=== PATIENT | female | born 1985 | race Caucasian/White ===

== ENCOUNTER 2017-01-30 16:22 | Emergency (ER) | payer BC, OTHER ==
[2017-01-30] MEDS ORDERED: SODIUM CHLORIDE 0.9% 1,000 ML IV STA (17:33)
[2017-01-30] MEDS ORDERED: ACETAMINOPHEN TAB 500 MG TAB PO STA (17:34)
--- NOTE | 2017-01-30 17:49 | ED ---
Abdominal Pain HPI - General Chief Complaint: Abdominal Pain Stated Complaint: abd pain-19 wks Time Seen by Provider: 01/30/17 17:11 Source: patient, RN notes reviewed, old records reviewed Mode of arrival: ambulatory Limitations: no limitations - History of Present Illness Initial Comments: 31-year-old female presents emergency Department chief complaint of right lower quadrant pain for the past week. She reports that she is currently 18 weeks . She states this is her second . She states she was seen earlier at [facility] received BLOOD WORK AND ULTRASOUND. SHE REPORTS THAT THE ULTRASOUND WAS Inconclusive.. THEY REPORT THAT HER WHITE BLOOD CELL COUNT WAS ELEVATED. SHE CALLED HER BUFFET RUNNER HER BUFFET RUNNER TOLD HER THAT SHE NEEDED BE EVALUATED AT THIS FACILITY. PATIENT STATES THAT SHE'S HAD MULTIPLE EPISODES OF VOMITING. DENIES ANY CHANGE IN BOWEL MOVEMENTS. SHE STATES SHE'S HAD NORMAL URINATION AND DENIES ANY HEMATURIA OR DYSURIA. SHE REPORTS THAT SHE'S HAD A HISTORY OF CHOLECYSTECTOMY, 2 C-SECTIONS. - Related Data Home Medications Medication Instructions Recorded Confirmed Acetaminophen Tab [Tylenol Tab] 650 mg PO Q6H PRN 01/30/17 01/30/17 Previous Rx's Medication Instructions Recorded Polyethylene Glycol 3350 [Miralax] 17 gm PO DAILY #255 gm 01/30/17 Allergies Allergy/AdvReac Type Severity Reaction Status Date / Time No Known Allergies Allergy Verified 01/30/17 17:17 Review of Systems ROS Statement: Those systems with pertinent positive or pertinent negative responses have been documented in the HPI. ROS Other: All systems not noted in ROS Statement are negative. Past Medical History Past Medical History: No Reported History Additional Past Medical History / Comment(s): 09/03/15 Pt presented to [facility] with epigastric pain which wraps around and radiates into her back. Pain causes anorexia and sweating and some SOB. Pain started couple months ago but became worse a couple weeks ago and even worse the past 2 days. Pain is sharp. Pt also states she has had blood in stool a couple times with last time being 2 days ago. Pt was transferred from [place] to [facility] as direct admit. Other HX: 01/2015 Pt admitted as transfer from [facility] with R lower quiadrant pain passible enteritis. Per old medical record, pt has anemia but she does not recall this. History of Any Multi-Drug Resistant Organisms: None Reported Past Surgical History: Section, Cholecystectomy, EPS Additional Past Surgical History / Comment(s): bile duct stent. 2 c section Past Anesthesia/Blood Transfusion Reactions: No Reported Reaction Additional Past Anesthesia/Blood Transfusion Reaction / Comment(s): no transfusion Past Psychological History: Anxiety, Depression Smoking Status: Current some day smoker Past Alcohol Use History: None Reported Past Drug Use History: None Reported - Past Family History Mother History Unknown: Yes Family Medical History: Diabetes Mellitus, Hypertension, Thyroid Disorder Additional Family Medical History / Comment(s): mother has diabetes, high blood pressure, hypothyroid. She is 51 yrs old. Father History Unknown: Yes Family Medical History: Diabetes Mellitus, Hyperlipidemia, Hypertension Additional Family Medical History / Comment(s): Father when pt was 6 months old. General Exam Limitations: no limitations General appearance: alert, in no apparent distress Head exam: Present: atraumatic, normocephalic, normal inspection Eye exam: Present: normal appearance, PERRL, EOMI. Absent: scleral icterus, conjunctival injection, periorbital swelling ENT exam: Present: normal exam, mucous membranes moist Neck exam: Present: normal inspection. Absent: tenderness, meningismus, lymphadenopathy Respiratory exam: Present: normal lung sounds bilaterally. Absent: respiratory distress, wheezes, rales, rhonchi, stridor Cardiovascular Exam: Present: regular rate, normal rhythm, normal heart sounds. Absent: systolic murmur, diastolic murmur, rubs, gallop, clicks GI/Abdominal exam: Present: soft, tenderness (RLQ tenderness, positive obturator sign), normal bowel sounds. Absent: distended, guarding, rebound, rigid Extremities exam: Present: normal inspection, full ROM, normal capillary refill. Absent: tenderness, pedal edema, joint swelling, calf tenderness Back exam: Present: normal inspection Neurological exam: Present: alert, oriented X3, CN II-XII intact Psychiatric exam: Present: normal affect, normal mood Skin exam: Present: warm, dry, intact, normal color. Absent: rash Course Vital Signs 01/30/17 01/30/17 01/30/17 16:26 18:40 20:26 Temperature 97.5 F L 97.4 F L Pulse Rate 118 H 93 78 Respiratory 18 16 16 Rate Blood Pressure 123/91 128/87 118/75 O2 Sat by Pulse 98 98 98 Oximetry 08/14/17 21:04 Temperature 97.8 F Pulse Rate 82 Respiratory 16 Rate Blood Pressure 125/95 O2 Sat by Pulse 100 Oximetry Medical Decision Making - Medical Decision Making 31-year-old female presents emergency Department chief complaint of right lower quadrant pain for the past week. She reports that she is currently 18 weeks . She states this is her second . She states she was seen earlier at [facility] received BLOOD WORK AND ULTRASOUND. Patient US report was reviewed, and radiologist states that it was inconculisve. I did repeat blood work, and patient labs do not have significant WBC, patient WBC is 13.6. Patient was informed that this is normal . heart tones are 148. Was evaluated by Dr. Harvey and Dr. Laureano. They both agree the patient does not clinically fit signs and symptoms of acute appendicitis, especially due to length of symptoms. Dr. Laureano recommended 2 view abdomen xray, however patient reports that she does not want to have radiation exposure to the fetus. Patient agrees with discharge. - Lab Data Result diagrams: 01/30/17 17:52 01/30/17 17:52 Lab Results 01/30/17 01/30/17 01/30/17 Range/Units 17:52 17:52 17:52 WBC 13.6 H (3.8-10.6) k/uL RBC 3.77 L (3.80-5.40) m/uL Hgb 11.8 (11.4-16.0) gm/dL Hct 33.5 L (34.0-46.0) % MCV 88.7 (80.0-100.0) fL MCH 31.3 (25.0-35.0) pg MCHC 35.3 (31.0-37.0) g/dL RDW 14.2 (11.5-15.5) % Plt Count 351 (150-450) k/uL Neutrophils % 72 % Lymphocytes % 22 % Monocytes % 3 % Eosinophils % 1 % Basophils % 0 % Neutrophils # 9.8 H (1.3-7.7) k/uL Lymphocytes # 3.1 (1.0-4.8) k/uL Monocytes # 0.5 (0-1.0) k/uL Eosinophils # 0.2 (0-0.7) k/uL Basophils # 0.0 (0-0.2) k/uL PT (9.0-12.0) sec INR (<1.2) APTT (22.0-30.0) sec Sodium 137 (137-145) mmol/L Potassium 3.7 (3.5-5.1) mmol/L Chloride 110 H (98-107) mmol/L Carbon Dioxide 19 L (22-30) mmol/L Anion Gap 8 mmol/L BUN 5 L (7-17) mg/dL Creatinine 0.40 L (0.52-1.04) mg/dL Est GFR (MDRD) Af Amer >60 (>60 ml/min/1.73 sqM) Est GFR (MDRD) Non-Af >60 (>60 ml/min/1.73 sqM) Glucose 81 (74-99) mg/dL Calcium 9.3 (8.4-10.2) mg/dL Total Bilirubin 0.1 L (0.2-1.3) mg/dL AST 9 L (14-36) U/L ALT 23 (9-52) U/L Alkaline Phosphatase 83 (38-126) U/L Total Protein 5.6 L (6.3-8.2) g/dL Albumin 3.0 L (3.5-5.0) g/dL Amylase 37 (30-110) U/L Lipase 47 (23-300) U/L Urine Color Light Yellow Urine Appearance Cloudy H (Clear) Urine pH 7.5 (5.0-8.0) Ur Specific Boss 1.008 (1.001-1.035) Urine Protein Negative (Negative) Urine Glucose (UA) Negative (Negative) Urine Ketones Negative (Negative) Urine Blood Negative (Negative) Urine Nitrite Negative (Negative) Urine Bilirubin Negative (Negative) Urine Urobilinogen <2.0 (<2.0) mg/dL Ur Leukocyte Esterase Trace H (Negative) Urine WBC 4 (0-5) /hpf Ur Squamous Epith Cells 11 H (0-4) /hpf Urine Bacteria Rare H (None) /hpf Urine Mucus Rare H (None) /hpf 01/30/17 Range/Units 17:52 WBC (3.8-10.6) k/uL RBC (3.80-5.40) m/uL Hgb (11.4-16.0) gm/dL Hct (34.0-46.0) % MCV (80.0-100.0) fL MCH (25.0-35.0) pg MCHC (31.0-37.0) g/dL RDW (11.5-15.5) % Plt Count (150-450) k/uL Neutrophils % % Lymphocytes % % Monocytes % % Eosinophils % % Basophils % % Neutrophils # (1.3-7.7) k/uL Lymphocytes # (1.0-4.8) k/uL Monocytes # (0-1.0) k/uL Eosinophils # (0-0.7) k/uL Basophils # (0-0.2) k/uL PT 9.8 (9.0-12.0) sec INR 1.0 (<1.2) APTT 21.9 L (22.0-30.0) sec Sodium (137-145) mmol/L Potassium (3.5-5.1) mmol/L Chloride (98-107) mmol/L Carbon Dioxide (22-30) mmol/L Anion Gap mmol/L BUN (7-17) mg/dL Creatinine (0.52-1.04) mg/dL Est GFR (MDRD) Af Amer (>60 ml/min/1.73 sqM) Est GFR (MDRD) Non-Af (>60 ml/min/1.73 sqM) Glucose (74-99) mg/dL Calcium (8.4-10.2) mg/dL Total Bilirubin (0.2-1.3) mg/dL AST (14-36) U/L ALT (9-52) U/L Alkaline Phosphatase (38-126) U/L Total Protein (6.3-8.2) g/dL Albumin (3.5-5.0) g/dL Amylase (30-110) U/L Lipase (23-300) U/L Urine Color Urine Appearance (Clear) Urine pH (5.0-8.0) Ur Specific Boss (1.001-1.035) Urine Protein (Negative) Urine Glucose (UA) (Negative) Urine Ketones (Negative) Urine Blood (Negative) Urine Nitrite (Negative) Urine Bilirubin (Negative) Urine Urobilinogen (<2.0) mg/dL Ur Leukocyte Esterase (Negative) Urine WBC (0-5) /hpf Ur Squamous Epith Cells (0-4) /hpf Urine Bacteria (None) /hpf Urine Mucus (None) /hpf - Radiology Data Ultrasound of the right lower quadrant performed today at 4:36 PM showed that the appendix could not be visualized. She is 19 weeks . Recommended considering a noncontrast MRI of the abdomen and clinical concern for acute appendicitis persist. Disposition Clinical Impression: Abdominal pain affecting Disposition: HOME SELF-CARE Condition: Good Instructions: Abdominal Pain in (ED) Additional Instructions: Advised to rest, increase fluids. Take Tylenol for pain. 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 Return to the emergency department if any alarming signs or symptoms occur. Prescriptions: Polyethylene Glycol 3350 [Miralax] 17 gm PO DAILY #255 gm Referrals: None,Stated [Primary Care Provider] - 1-2 days Time of Disposition: 20:30
[2017-01-30 18:05] LABS: Basophils % (A) 0 %; CH 31.6; CHCM 35.8; Eosinophils # (A) 0.2 k/uL (0-0.7); Eosinophils % (A) 1 %; HCT 33.5 % (34.0-46.0); HDW 2.66; HGB 11.8 gm/dL (11.4-16.0); Luc # (Auto) 0.14; Luc % (Auto) 1; Lymphocytes # (A) 3.1 k/uL (1.0-4.8); Lymphocytes % (A) 22 %; MCH 31.3 pg (25.0-35.0); MCHC 35.3 g/dL (31.0-37.0); MCV 88.7 fL (80.0-100.0); Mean Platelet Volume 7.9; Monocytes # (A) 0.5 k/uL (0-1.0); Monocytes % (A) 3 %; Neutrophils # (A) 9.8 k/uL (1.3-7.7); Neutrophils % (A) 72 %; RBC 3.77 m/uL (3.80-5.40); RDW 14.2 % (11.5-15.5); WBC 13.6 k/uL (3.8-10.6); WBC (Perox) 13.46
[2017-01-30 18:16] LABS: ALT 23 U/L (9-52); AST 9 U/L (14-36); Alkaline Phosphatase 83 U/L (38-126); Amylase 37 U/L (30-110); Anion Gap 8 mmol/L; Blood Urea Nitrogen 5 mg/dL (7-17); Calcium 9.3 mg/dL (8.4-10.2); Carbon Dioxide 19 mmol/L (22-30); Chloride 110 mmol/L (98-107); Glucose 81 mg/dL (74-99); Non-African American GFR(MDRD) >60 (>60 ml/min/1.73 sqM); Potassium 3.7 mmol/L (3.5-5.1); Prothrombin Time 9.8 sec (9.0-12.0); Sodium 137 mmol/L (137-145); Total Bilirubin 0.1 mg/dL (0.2-1.3); Total Protein 5.6 g/dL (6.3-8.2)
[2017-01-30 18:22] LABS: Appearance,Urine Cloudy (Clear); Bacteria,Urine Rare /hpf; Bilirubin,Urine Negative (Negative); Glucose,Urine (UA) Negative (Negative); Ketones,Urine Negative (Negative); Leukocyte Esterase,Urine Trace (Negative); Mucus,Urine Rare /hpf; Nitrite,Urine Negative (Negative); PH, Urine 7.5 (5.0-8.0); Particle Count 7503; Protein,Urine Negative (Negative); Specific Gravity,Urine 1.008 (1.001-1.035); Squamous Epithelial Cell,Urine 11 /hpf (0-4); UA Billing (MACRO vs. MICRO) MICRO; Urobilinogen,Urine <2.0 mg/dL (<2.0); WBC,Urine 4 /hpf (0-5)
[2017-01-30 18:41] VITALS: RESP 16
[2017-01-30 18:41] LABS: Partial Thromboplastin Time 21.9 sec (22.0-30.0)
--- NOTE | 2017-01-30 20:32 | P.PN ---
Progress Note - Text Patient seen and evaluated. She reports actually 1 week history of initial nausea and vomiting and then progressive right upper quadrant and epigastric pain. She reports having a full meal this morning including yousif and eggs and cheese sandwich with hashbrowns. She reports decreased passage of flatus. This is her third . She is 18 weeks . She is due to see her numerical control tool programmer next week. Since being in the emergency room, she reports her pain has not gotten any worse. In fact she is more eager to go home. I recommended IV fluid hydration including MiraLAX. Recommend abdominal x-ray as a decreased risk of radiation from a CT abdomen and pelvis. Clinical history including exam demonstrates minimal tenderness along the right lower quadrant. No peritonitis. Patient to follow up with her primary SENIOR SPEECH PATHOLOGIST. Findings likely consistent with underlying ileus. Above plan was discussed with Dr. Harvey.
[2017-01-30] MEDS ORDERED: SODIUM CHLORIDE 0.9% 1,000 ML IV ONE (20:33)
[2017-01-30 21:06] VITALS: BP 125/95; PULSE 82; TEMP 97.8
== END 2017-01-30 21:06 | disposition home or self-care (01) ==
LOC: EC 16:22
DX: O26.892 Other specified pregnancy related conditions, second trimester (principal); R10.31 Right lower quadrant pain; O99.332 Smoking (tobacco) complicating pregnancy, second trimester; F17.200 Nicotine dependence, unspecified, uncomplicated; Z90.49 Acquired absence of other specified parts of digestive tract; Z96.89 Presence of other specified functional implants; Z3A.19 19 weeks gestation of pregnancy
CPT/HCPCS: 36415; 80053; 81001; 82150; 83690; 85025; 85610; 85730; 96360; 99284

== ENCOUNTER 2019-07-22 09:17 | Emergency (ER) | payer BC ==
[2019-07-22 09:37] VITALS: TEMP 98.1
[2019-07-22] MEDS ORDERED: SODIUM CHLORIDE 0.9% 1,000 ML IV STA ×2 (10:08)
[2019-07-22] MEDS ORDERED: KETOROLAC 30 MG/ML 1 ML VIAL IVP STA (10:08)
[2019-07-22] MEDS ORDERED: PANTOPRAZOLE 40 MG/10 ML VIAL IVP STA (10:09)
--- NOTE | 2019-07-22 10:21 | ED ---
Chest Pain HPI - General Chief Complaint: Chest Pain Stated Complaint: upper abdominal/chest pain Time Seen by Provider: 07/22/19 09:54 Source: patient, RN notes reviewed, old records reviewed Mode of arrival: ambulatory Limitations: no limitations - History of Present Illness Initial Comments: Cynthia is a 33-year-old female presented today for eval for concern for upper abdominal pain, radiating towards her chest. It started last week. She states that she had an episode last night that woke up at 2 AM. She also complains of nausea. She states it doesn't feel similar to previous Gastric Reflux. She Has Had Her Gallbladder Removed and Had a Biliary Stent Placed. Denies Any History of Alcohol Use. She Is a Current Smoker. Patient States No Significant past Medical History of Cardiac Disease, but does report possible family history of cardiac disease. She states that she has had no back pain. Denies any diarrhea or changes in urination. - Related Data Previous Rx's Medication Instructions Recorded Famotidine [Pepcid] 20 mg PO BID #20 tablet 07/22/19 Sucralfate [Carafate] 1 gm PO BID #20 ml 07/22/19 Allergies Allergy/AdvReac Type Severity Reaction Status Date / Time No Known Allergies Allergy Verified 07/22/19 11:48 Review of Systems ROS Statement: Those systems with pertinent positive or pertinent negative responses have been documented in the HPI. ROS Other: All systems not noted in ROS Statement are negative. EKG Findings - EKG Comments: EKG Findings:: EKG performed at 952 shows normal sinus rhythm. T wave antibiotic consider anterolateral ischemia. Ventricular rate of 80 bpm. Intervals 166 most seconds. Chemistry shows 84 ms. QT QTc is 360/4:15. Past Medical History Past Medical History: No Reported History Additional Past Medical History / Comment(s): 09/03/15 Pt presented to [facility] with epigastric pain which wraps around and radiates into her back. Pain causes anorexia and sweating and some SOB. Pain started couple months ago but became worse a couple weeks ago and even worse the past 2 days. Pain is sharp. Pt also states she has had blood in stool a couple times with last time being 2 days ago. Pt was transferred from [place] to [facility] as direct admit. Other HX: 01/2015 Pt admitted as transfer from [facility] with R lower quiadrant pain passible enteritis. Per old medical record, pt has anemia but she does not recall this. History of Any Multi-Drug Resistant Organisms: None Reported Past Surgical History: Section, Cholecystectomy, EPS Additional Past Surgical History / Comment(s): bile duct stent. 2 c section Past Anesthesia/Blood Transfusion Reactions: No Reported Reaction Additional Past Anesthesia/Blood Transfusion Reaction / Comment(s): no transfusion Past Psychological History: Anxiety, Depression Smoking Status: Current some day smoker Past Alcohol Use History: None Reported Past Drug Use History: None Reported - Past Family History Mother History Unknown: Yes Family Medical History: Diabetes Mellitus, Hypertension, Thyroid Disorder Additional Family Medical History / Comment(s): mother has diabetes, high blood pressure, hypothyroid. She is 51 yrs old. Father History Unknown: Yes Family Medical History: Diabetes Mellitus, Hyperlipidemia, Hypertension Additional Family Medical History / Comment(s): Father when pt was 6 months old. General Exam - General Exam Comments Initial Comments: 33year old female, no distress. Limitations: no limitations Head exam: Present: atraumatic, normocephalic, normal inspection Eye exam: Present: normal appearance, PERRL, EOMI. Absent: scleral icterus, conjunctival injection, periorbital swelling ENT exam: Present: normal exam, mucous membranes moist Neck exam: Present: normal inspection. Absent: tenderness, meningismus, lymphadenopathy Respiratory exam: Present: normal lung sounds bilaterally. Absent: respiratory distress, wheezes, rales, rhonchi, stridor Cardiovascular Exam: Present: regular rate, normal rhythm, normal heart sounds. Absent: systolic murmur, diastolic murmur, rubs, gallop, clicks GI/Abdominal exam: Present: soft, tenderness (epigastric tenderness, reproducible pain. ), normal bowel sounds. Absent: distended, guarding, rebound, rigid Back exam: Present: normal inspection Neurological exam: Present: alert, oriented X3, CN II-XII intact Psychiatric exam: Present: normal affect, normal mood Course Vital Signs 07/22/19 07/22/19 09:34 12:15 Temperature 98.1 F Pulse Rate 96 70 Respiratory 17 18 Rate Blood Pressure 159/109 123/76 O2 Sat by Pulse 100 99 Oximetry Chest Pain MDM - MDM 33 year old female with epigastric tenderness and chest pain. Denies feeling like acid reflux. Pain is reproducible over epigastric area. She has normal labs, and EKG shows no ST elevation. Troponin is negative. CXR is normal. Discussed patient may have peptic ulcer disease. She has reported some palpitation in past, EKG and monitor showed normal sinus rhythm. Discussed she may need Holter monitoring from PCP. Discussed return parameters and patient DC in stable condition. Disposition Clinical Impression: Epigastric abdominal pain Disposition: HOME SELF-CARE Condition: Stable Instructions (If sedation given, give patient instructions): Epigastric Pain (E D) Additional Instructions: Patient has a follow-up with your primary care physician. Patient showed a clear liquid diet. Take the medication as prescribed. He reports occasional palpitations or complaining up with PCP for long-term heart monitor. Return to ED if any alarming signs or symptoms occur. Prescriptions: Sucralfate [Carafate] 1 gm PO BID #20 ml Famotidine [Pepcid] 20 mg PO BID #20 tablet Is patient prescribed a controlled substance at d/c from ED?: No Referrals: Ronn Avelar MD [Primary Care Provider] - 1-2 days Time of Disposition: 12:05
[2019-07-22 10:38] LABS: Basophils % (A) 0 %; Eosinophils # (A) 0.2 k/uL (0-0.7); Eosinophils % (A) 2 %; HCT 40.7 % (34.0-46.0); HGB 13.4 gm/dL (11.4-16.0); Lymphocytes # (A) 2.3 k/uL (1.0-4.8); Lymphocytes % (A) 23 %; MCH 27.6 pg (25.0-35.0); MCHC 32.9 g/dL (31.0-37.0); MCV 83.9 fL (80.0-100.0); Mean Platelet Volume 8.5; Monocytes # (A) 0.3 k/uL (0-1.0); Monocytes % (A) 3 %; Neutrophils % (A) 71 %; Platelet Count 334 k/uL (150-450); RBC 4.85 m/uL (3.80-5.40); RDW 13.4 % (11.5-15.5); WBC 9.9 k/uL (3.8-10.6)
--- NOTE | 2019-07-22 10:39 | XR ---
EXAMINATION TYPE: XR chest 2V DATE OF EXAM: 07/22/2019 COMPARISON: NONE HISTORY: Chest pain TECHNIQUE: Frontal and lateral views of the chest are obtained. FINDINGS: There is no focal air space opacity. No evidence for pneumothorax. No pleural effusion. The cardiac silhouette size is within normal limits. The osseous structures are grossly intact. IMPRESSION: 1. No acute cardiopulmonary process.
[2019-07-22 10:46] LABS: INR 0.9 (<1.2); Partial Thromboplastin Time 22.1 sec (22.0-30.0); Prothrombin Time 9.8 sec (9.0-12.0)
[2019-07-22 10:58] LABS: ALT 13 U/L (4-34); AST 18 U/L (14-36); African American GFR (CKD) >90 (>60 ml/min/1.73 sqM); Albumin 4.2 g/dL (3.5-5.0); Alkaline Phosphatase 74 U/L (38-126); Anion Gap 7 mmol/L; Blood Urea Nitrogen 8 mg/dL (7-17); Calcium 9.6 mg/dL (8.4-10.2); Carbon Dioxide 26 mmol/L (22-30); Chloride 109 mmol/L (98-107); Glucose 85 mg/dL (74-99); Magnesium 1.9 mg/dL (1.6-2.3); Non-African American GFR(CKD) >90 (>60 ml/min/1.73 sqM); Potassium 3.6 mmol/L (3.5-5.1); Sodium 142 mmol/L (137-145); Total Bilirubin 0.4 mg/dL (0.2-1.3); Total Protein 7.1 g/dL (6.3-8.2)
[2019-07-22 12:16] VITALS: BP 123/76; PULSE 70; RESP 18
== END 2019-07-22 12:15 | disposition home or self-care (01) ==
LOC: EC 09:17
DX: R10.13 Epigastric pain (principal); R07.9 Chest pain, unspecified; R11.0 Nausea; F17.200 Nicotine dependence, unspecified, uncomplicated
CPT/HCPCS: 36415; 93005; 80053; 83735; 84484; 85025; 85610; 85730; 71046; 99285; 96374; 96375; 96361; J1885; C9113

== ENCOUNTER 2020-02-18 09:47 | Emergency (ER) | payer BC ==
[2020-02-18 09:55] VITALS: PULSE 106; TEMP 98.2
[2020-02-18 11:11] VITALS: RESP 18
--- NOTE | 2020-02-18 11:56 | CT ---
EXAMINATION TYPE: CT abdomen pelvis w con DATE OF EXAM: 02/18/2020 HISTORY: Right sided pain with nausea. CT DLP: 1261.4mGycm Automated Exposure Control for Dose Reduction was Utilized. CONTRAST: CT scan of the abdomen and pelvis is performed without oral but with IV Contrast, patient injected wi th 100 mL of Isovue 300. COMPARISON: CT abdomen and pelvis February 13, 2015 FINDINGS: LUNG BASES: No significant abnormality is appreciated. LIVER/GB: Cholecystectomy clips are noted. PANCREAS: No significant abnormality is seen. SPLEEN: No significant abnormality is seen. ADRENALS: No significant abnormality is seen. KIDNEYS: Symmetric cortical medullary uptake and excretion without hydronephrosis seen bilaterally. BOWEL: Normal-appearing appendix seen ascending from cecum. Sigmoid colonic diverticula. No CT eviden ce for acute diverticulitis. Suboptimal evaluation of bowel without enteric contrast. No suspicious s mall or large bowel dilatation. Mild wall thickening and mural enhancement at level of the terminal i leum is felt present coronal image 34. Mild wall thickening in the right colon is seen including cecu m. Slightly low-lying cecum noted. UTERUS/ADNEXA: Anteverted uterus. Right ovary asymmetrically larger than left ovary with few irregula r low dense lesions. Small amount of free fluid pelvic cul-de-sac axial image 75. LYMPH NODES: No greater than 1cm abdominal or pelvic lymph nodes are appreciated. OSSEOUS STRUCTURES: No significant abnormality is seen. OTHER: No significant additional abnormality is seen. IMPRESSION: 1. Possible mild uncomplicated enterocolitis, correlate clinically. Consider inflammatory bowel disea se in patient of this age. No CT evidence of acute appendicitis. 2. Asymmetric enlarged right ovary with small amount of free fluid in pelvic cul-de-sac. Nonspecific finding. In patient with right sided pain consider pelvic ultrasound to further evaluate.
[2020-02-18] MEDS ORDERED: MORPHINE SULFATE 2 MG/ML SYRINGE IVP STA (12:10)
[2020-02-18 12:33] LABS: Basophils % (A) 0 %; Eosinophils # (A) 0.3 k/uL (0-0.7); Eosinophils % (A) 3 %; HCT 39.9 % (34.0-46.0); HGB 13.2 gm/dL (11.4-16.0); Lymphocytes # (A) 2.6 k/uL (1.0-4.8); Lymphocytes % (A) 23 %; MCH 28.1 pg (25.0-35.0); MCV 85.2 fL (80.0-100.0); Mean Platelet Volume 8.6; Monocytes # (A) 0.3 k/uL (0-1.0); Monocytes % (A) 3 %; Neutrophils % (A) 70 %; Platelet Count 281 k/uL (150-450); RBC 4.68 m/uL (3.80-5.40); RDW 13.6 % (11.5-15.5); WBC 11.4 k/uL (3.8-10.6)
[2020-02-18 12:42] LABS: ALT 12 U/L (4-34); AST 25 U/L (14-36); African American GFR (CKD) >90 (>60 ml/min/1.73 sqM); Albumin 3.9 g/dL (3.5-5.0); Alkaline Phosphatase 52 U/L (38-126); Anion Gap 6 mmol/L; Blood Urea Nitrogen 5 mg/dL (7-17); Calcium 9.1 mg/dL (8.4-10.2); Carbon Dioxide 25 mmol/L (22-30); Chloride 107 mmol/L (98-107); Glucose 77 mg/dL (74-99); Non-African American GFR(CKD) >90 (>60 ml/min/1.73 sqM); Potassium 4.8 mmol/L (3.5-5.1); Sodium 138 mmol/L (137-145); Total Bilirubin 0.7 mg/dL (0.2-1.3); Total Protein 6.5 g/dL (6.3-8.2)
[2020-02-18 12:46] LABS: Appearance,Urine Clear (Clear); Bilirubin,Urine Negative (Negative); Blood,Urine Negative (Negative); Color,Urine Light Yellow; Glucose,Urine (UA) Negative (Negative); Ketones,Urine Negative (Negative); Leukocyte Esterase,Urine Negative (Negative); Nitrite,Urine Negative (Negative); Protein,Urine Negative (Negative); Urobilinogen,Urine <2.0 mg/dL (<2.0)
[2020-02-18 12:57] LABS: Specific Gravity,Urine >1.050 (1.001-1.035)
[2020-02-18] MEDS ORDERED: ACETAMINOPHEN TAB 325 MG TAB PO STA (13:07)
--- NOTE | 2020-02-18 13:11 | US ---
EXAMINATION TYPE: US pelvis complete transvag plus Dopplers DATE OF EXAM: 02/18/2020 COMPARISON: NONE CLINICAL HISTORY: 34-year-old female RLQ pain. Pain, recent cyst removal on the right with ablation TECHNIQUE: Transabdominal sonographic images of the pelvis were acquired. Transvaginal scanning was medically necessary to better assess the anatomy. Color Doppler and spectral waveform analysis of the ovarian arteries and veins. Date of LMP: ablation 12/2019 FINDINGS: EXAM MEASUREMENTS: Uterus: 9.2 x 4.8 x 4.4 cm Endometrial Stripe: unable to discern Right Ovary: 4.8 x 4.6 x 3.1 cm for a volume of 35.8 mL. Left Ovary: 2.3 x 1.9 x 1.5 cm for a volume of 1.9 mL. 1. Uterus: Retroverted, heterogeneous fundus. Suspect prior scar. 2. Endometrium: heterogeneous and unable to discern measurement due to recent ablation 3. Right Ovary: enlarged ovary with 2.3cm cystic area, almost appearing like an involuting cyst with free fluid noted adjacent to ovary. 4. Left Ovary: wnl Spectral, color and waveform doppler imaging shows good arterial and venous flow within the ovaries ; there is no evidence for ovarian torsion. 5. Bilateral Adnexa: Mild to moderate free fluid within right adnexa 6. Posterior cul-de-sac: wnl IMPRESSION: 1. The right ovary is enlarged at 35.8 mL. However, Doppler assessment does not show evidence for ova pino torsion. A 2.3 cm dominant follicle or functional cyst is present within. Consider short interva l follow-up. 2. Unable to discern the endometrial stripe compatible with recent endometrial ablation. 3. Mild to moderate right adnexal and cul-de-sac free fluid. This may be physiologic. Again, short in terval follow-up can be considered.
--- NOTE | 2020-02-18 13:12 | ED ---
Abdominal Pain HPI - General Chief Complaint: Abdominal Pain Stated Complaint: Abd pain Time Seen by Provider: 02/18/20 09:58 Source: patient Mode of arrival: ambulatory Limitations: no limitations - History of Present Illness Initial Comments: 34-year-old feel present for right lower quadrant pain. Patient recent uterine ablation in December. Patient states she struggles with cysts on and off. Patient states she recent started hormone to help with dysfunctional uterine bleeding as well. Patient states that since she has been on his hormone she's had increasing right lower pelvic pain for approximately 1-2 weeks. Patient denies a fevers anorexia nausea vomiting diarrhea. She states the pain was increased and felt slightly different than her cyst pain so she presented to the ER. Ptient have no additional complaints. Denies chest pain denies shortness of breath. Appears nontoxic on arrival. - Related Data Home Medications Medication Instructions Recorded Confirmed lisinopriL [Zestril] 30 mg PO DAILY 02/18/20 02/18/20 Allergies Allergy/AdvReac Type Severity Reaction Status Date / Time No Known Allergies Allergy Verified 02/18/20 10:48 Review of Systems ROS Statement: Those systems with pertinent positive or pertinent negative responses have been documented in the HPI. ROS Other: All systems not noted in ROS Statement are negative. Past Medical History Past Medical History: No Reported History Additional Past Medical History / Comment(s): 09/03/15 Pt presented to [facility] with epigastric pain which wraps around and radiates into her back. Pain causes anorexia and sweating and some SOB. Pain started couple months ago but became worse a couple weeks ago and even worse the past 2 days. Pain is sharp. Pt also states she has had blood in stool a couple times with last time being 2 days ago. Pt was transferred from [place] to [facility] as direct admit. Other HX: 01/2015 Pt admitted as transfer from [facility] with R lower quiadrant pain passible enteritis. Per old medical record, pt has anemia but she does not recall this. History of Any Multi-Drug Resistant Organisms: None Reported Past Surgical History: Ablation, Section, Cholecystectomy, EPS Additional Past Surgical History / Comment(s): bile duct stent. 2 c section Past Anesthesia/Blood Transfusion Reactions: No Reported Reaction Additional Past Anesthesia/Blood Transfusion Reaction / Comment(s): no transfusion Past Psychological History: Anxiety, Depression Smoking Status: Current every day smoker Past Alcohol Use History: None Reported Past Drug Use History: None Reported - Past Family History Mother History Unknown: Yes Family Medical History: Diabetes Mellitus, Hypertension, Thyroid Disorder Additional Family Medical History / Comment(s): mother has diabetes, high blood pressure, hypothyroid. She is 51 yrs old. Father History Unknown: Yes Family Medical History: Diabetes Mellitus, Hyperlipidemia, Hypertension Additional Family Medical History / Comment(s): Father when pt was 6 months old. General Exam - General Exam Comments Initial Comments: General: The patient is awake and alert, in no distress, and does not appear acutely ill. Eye: +3 mm pupils are equal, round and reactive to light, extra-ocular movements are intact. No nystagmus. There is normal conjunctiva bilaterally. No signs of icterus. Ears, nose, mouth and throat: There are moist mucous membranes and no oral lesions. Neck: The neck is supple, there is no tenderness or JVD. Cardiovascular: There is a regular rate and rhythm. No murmur, rub or gallop is appreciated. Respiratory: Lungs are clear to auscultation, respirations are non-labored, breath sounds are equal. No wheezes, stridor, rales, or rhonchi. Gastrointestinal: Soft, non-distended, RLQ tenderness to palpation of the abdomen, abdomen without masses or organomegaly noted. There is no rebound or g uarding present :No significant adnexal tenderness, scant vaginal discharge no odor no cervical motion tenderness no blood Musculoskeletal: Normal ROM, no tenderness. Strength 5/5. Sensation intact. Pulses equal bilaterally 2+. Neurological: A&O x 3. CN II-XII intact grossly, There are no obvious motor or sensory deficits. Coordination appears grossly intact. Speech is normal. Skin: Skin is warm and dry and no rashes or lesions are noted. Psychiatric: Cooperative, appropriate mood & affect, normal judgment. Limitations: no limitations Course Vital Signs 02/18/20 02/18/20 02/18/20 09:51 10:54 13:00 Temperature 98.2 F Pulse Rate 106 H Respiratory 17 18 Rate Blood Pressure 145/103 140/100 O2 Sat by Pulse 98 Oximetry 02/18/20 13:41 Temperature Pulse Rate Respiratory Rate Blood Pressure 138/92 O2 Sat by Pulse Oximetry Medical Decision Making - Medical Decision Making 34-year-old female presenting today for cc of RLQ pain. CT no appendicitis. I discussed enteritis. Patient US cysts no torsion. Ecchymosis negative patient pain control emergency department at this time feel she stay for discharge with outpatient [employer] follow-up I did recommend GI follow up as well for the inflammation saw on CT today. Patient verbalizes understanding was discharged appearing well. Discussed case wtih Dr. Harvey - Lab Data Result diagrams: 02/18/20 12:20 02/18/20 12:20 Lab Results 02/18/20 02/18/20 02/18/20 Range/Units 12:20 12:20 12:20 WBC 11.4 H (3.8-10.6) k/uL RBC 4.68 (3.80-5.40) m/uL Hgb 13.2 (11.4-16.0) gm/dL Hct 39.9 (34.0-46.0) % MCV 85.2 (80.0-100.0) fL MCH 28.1 (25.0-35.0) pg MCHC 33.0 (31.0-37.0) g/dL RDW 13.6 (11.5-15.5) % Plt Count 281 (150-450) k/uL Neutrophils % 70 % Lymphocytes % 23 % Monocytes % 3 % Eosinophils % 3 % Basophils % 0 % Neutrophils # 8.0 H (1.3-7.7) k/uL Lymphocytes # 2.6 (1.0-4.8) k/uL Monocytes # 0.3 (0-1.0) k/uL Eosinophils # 0.3 (0-0.7) k/uL Basophils # 0.0 (0-0.2) k/uL Sodium 138 (137-145) mmol/L Potassium 4.8 (3.5-5.1) mmol/L Chloride 107 (98-107) mmol/L Carbon Dioxide 25 (22-30) mmol/L Anion Gap 6 mmol/L BUN 5 L (7-17) mg/dL Creatinine 0.50 L (0.52-1.04) mg/dL Est GFR (CKD-EPI)AfAm >90 (>60 ml/min/1.73 sqM) Est GFR (CKD-EPI)NonAf >90 (>60 ml/min/1.73 sqM) Glucose 77 (74-99) mg/dL Calcium 9.1 (8.4-10.2) mg/dL Total Bilirubin 0.7 (0.2-1.3) mg/dL AST 25 (14-36) U/L ALT 12 (4-34) U/L Alkaline Phosphatase 52 (38-126) U/L Total Protein 6.5 (6.3-8.2) g/dL Albumin 3.9 (3.5-5.0) g/dL Urine Color Light Yellow Urine Appearance Clear (Clear) Urine pH 8.0 (5.0-8.0) Ur Specific [place] >1.050 H (1.001-1.035) Urine Protein Negative (Negative) Urine Glucose (UA) Negative (Negative) Urine Ketones Negative (Negative) Urine Blood Negative (Negative) Urine Nitrite Negative (Negative) Urine Bilirubin Negative (Negative) Urine Urobilinogen <2.0 (<2.0) mg/dL Ur Leukocyte Esterase Negative (Negative) Urine HCG, Qual (Not Detectd) Chlamydia Source Chlamydia DNA (PCR) (Neg,Equiv) N. gonorrhoeae Source N.gonorrhoeae DNA Probe (Neg,Equiv) Trichomonas Ag (Rapid) (Negative) 02/18/20 02/18/20 02/18/20 Range/Units 12:20 12:30 12:30 WBC (3.8-10.6) k/uL RBC (3.80-5.40) m/uL Hgb (11.4-16.0) gm/dL Hct (34.0-46.0) % MCV (80.0-100.0) fL MCH (25.0-35.0) pg MCHC (31.0-37.0) g/dL RDW (11.5-15.5) % Plt Count (150-450) k/uL Neutrophils % % Lymphocytes % % Monocytes % % Eosinophils % % Basophils % % Neutrophils # (1.3-7.7) k/uL Lymphocytes # (1.0-4.8) k/uL Monocytes # (0-1.0) k/uL Eosinophils # (0-0.7) k/uL Basophils # (0-0.2) k/uL Sodium (137-145) mmol/L Potassium (3.5-5.1) mmol/L Chloride (98-107) mmol/L Carbon Dioxide (22-30) mmol/L Anion Gap mmol/L BUN (7-17) mg/dL Creatinine (0.52-1.04) mg/dL Est GFR (CKD-EPI)AfAm (>60 ml/min/1.73 sqM) Est GFR (CKD-EPI)NonAf (>60 ml/min/1.73 sqM) Glucose (74-99) mg/dL Calcium (8.4-10.2) mg/dL Total Bilirubin (0.2-1.3) mg/dL AST (14-36) U/L ALT (4-34) U/L Alkaline Phosphatase (38-126) U/L Total Protein (6.3-8.2) g/dL Albumin (3.5-5.0) g/dL Urine Color Urine Appearance (Clear) Urine pH (5.0-8.0) Ur Specific [place] (1.001-1.035) Urine Protein (Negative) Urine Glucose (UA) (Negative) Urine Ketones (Negative) Urine Blood (Negative) Urine Nitrite (Negative) Urine Bilirubin (Negative) Urine Urobilinogen (<2.0) mg/dL Ur Leukocyte Esterase (Negative) Urine HCG, Qual Not Detected (Not Detectd) Chlamydia Source Vagina Chlamydia DNA (PCR) Negative (Neg,Equiv) N. gonorrhoeae Source Vagina N.gonorrhoeae DNA Probe Negative (Neg,Equiv) Trichomonas Ag (Rapid) Negative (Negative) Disposition Clinical Impression: RLQ abdominal pain, Pelvic pain, Ovarian cyst Disposition: HOME SELF-CARE Condition: Good Instructions (If sedation given, give patient instructions): Ovarian Cyst (ED) Additional Instructions: Please use medication as discussed. Please follow-up with OBGYN in next week. Please return to emergency room if the symptoms increase or worsen or for any other concerns. Is patient prescribed a controlled substance at d/c from ED?: No Referrals: Ronn Avelar MD [Primary Care Provider] - 1-2 days Time of Disposition: 13:12
[2020-02-18] MEDS ORDERED: amLODIPine 5 MG TAB PO STA (13:19)
[2020-02-18 13:42] VITALS: BP 138/92
[2020-02-19 14:44] LABS: C. trachomatis,PCR Negative (Neg,Equiv); Chlamydia trachomatis Source Vagina; N. gonorrhoeae,PCR Negative (Neg,Equiv); Neisseria Source Vagina
== END 2020-02-18 13:41 | disposition home or self-care (01) ==
LOC: EC 09:47
DX: N83.201 Unspecified ovarian cyst, right side (principal); F17.200 Nicotine dependence, unspecified, uncomplicated; Z79.899 Other long term (current) drug therapy; Z90.49 Acquired absence of other specified parts of digestive tract; Z96.89 Presence of other specified functional implants
CPT/HCPCS: 36415; 80053; 85025; 81003; 81025; 87808; 87491; 87591; 87070; 93975; 76856; 76830; 74177; 99284; Q9967

== ENCOUNTER 2020-09-16 08:06 | Emergency (ER) | payer BC ==
--- NOTE | 2020-09-16 08:28 | ED ---
General Adult HPI - General Chief complaint: Abdominal Pain Stated complaint: Abd pain Time Seen by Provider: 09/16/20 08:12 Source: patient, RN notes reviewed, old records reviewed Mode of arrival: ambulatory Limitations: no limitations - History of Present Illness Initial comments: This is a 35-year-old female presents emergency Department complaining of abdominal pain in the right lower quadrant. Patient states she had a oophorectomy in April of her right ovary. Patient comes in today stating that she has had right lower quadrant pain since June. Patient states the pain is slowly and progressively getting worse per patient states about a month ago she had a CAT scan and it does not show anything. Patient comes in today because the pain is getting worse she states it is worse with movement and it is if she just sits still. Patient denies any nausea vomiting or diarrhea. Patient denies any fever chills per patient denies any back pain patient denies any dysuria hematuria urinary frequency. Patient denies any abnormal vaginal bleeding or discharge. - Related Data Home Medications Medication Instructions Recorded Confirmed lisinopriL [Zestril] 30 mg PO DAILY 02/18/20 02/18/20 Allergies Allergy/AdvReac Type Severity Reaction Status Date / Time No Known Allergies Allergy Verified 09/16/20 08:08 Review of Systems ROS Statement: Those systems with pertinent positive or pertinent negative responses have been documented in the HPI. ROS Other: All systems not noted in ROS Statement are negative. Past Medical History Past Medical History: No Reported History Additional Past Medical History / Comment(s): 09/03/15 Pt presented to [facility] with epigastric pain which wraps around and radiates into her back. Pain causes anorexia and sweating and some SOB. Pain started couple months ago but became worse a couple weeks ago and even worse the past 2 days. Pain is sharp. Pt also states she has had blood in stool a couple times with last time being 2 days ago. Pt was transferred from [facility] to [facility] as direct admit. Other HX: 01/2015 Pt admitted as transfer from [facility] with R lower quiadrant pain passible enteritis. Per old medical record, pt has anemia but she does not recall this. History of Any Multi-Drug Resistant Organisms: None Reported Past Surgical History: Ablation, Section, Cholecystectomy, EPS Additional Past Surgical History / Comment(s): bile duct stent. 2 c section. right ovary removed Past Anesthesia/Blood Transfusion Reactions: No Reported Reaction Additional Past Anesthesia/Blood Transfusion Reaction / Comment(s): no transfusion Past Psychological History: Anxiety, Depression Smoking Status: Current every day smoker Past Alcohol Use History: None Reported Past Drug Use History: None Reported - Past Family History Mother History Unknown: Yes Family Medical History: Diabetes Mellitus, Hypertension, Thyroid Disorder Additional Family Medical History / Comment(s): mother has diabetes, high blood pressure, hypothyroid. She is 51 yrs old. Father History Unknown: Yes Family Medical History: Diabetes Mellitus, Hyperlipidemia, Hypertension Additional Family Medical History / Comment(s): Father when pt was 6 months old. General Exam - General Exam Comments Initial Comments: GENERAL: Patient is well-developed and well-nourished. Patient is nontoxic and well- hydrated and is in mild distress. ENT: Neck is soft and supple. No significant lymphadenopathy is noted. Oropharynx is clear. Moist mucous membranes. Neck has full range of motion without eliciting any pain. EYES: The sclera were anicteric and conjunctiva were pink and moist. Extraocular movements were intact and pupils were equal round and reactive to light. Eye lids were unremarkable. PULMONARY: Unlabored respirations. Good breath sounds bilaterally. No audible rales rhonchi or wheezing was noted. CARDIOVASCULAR: There is a regular rate and rhythm without any murmurs gallops or rubs. ABDOMEN: Soft and nontender with normal bowel sounds. Right lower quadrant abdominal pain. SKIN: Skin is clear with no lesions or rashes and otherwise unremarkable. NEUROLOGIC: Patient is alert and oriented x3. Cranial nerves II through XII are grossly intact. Motor and sensory are also intact. Normal speech, volume and content. Symmetrical smile. MUSCULOSKELETAL: Normal extremities with adequate strength and full range of motion. No lower extremity swelling or edema. No calf tenderness. LYMPHATICS: No significant lymphadenopathy is noted PSYCHIATRIC: Normal psychiatric evaluation. Limitations: no limitations Course Vital Signs 09/16/20 08:08 Temperature 97.9 F Pulse Rate 106 H Respiratory 16 Rate Blood Pressure 131/86 O2 Sat by Pulse 98 Oximetry Medical Decision Making - Medical Decision Making I will back in the room on 2 separate occasions and the patient was resting comfortably in no distress. Patient again indicated to me the symptoms been ongoing since June - Lab Data Result diagrams: 09/16/20 08:51 09/16/20 08:51 Lab Results 09/16/20 09/16/20 09/16/20 Range/Units 08:51 08:51 08:59 WBC 10.8 H (3.8-10.6) k/uL RBC 4.89 (3.80-5.40) m/uL Hgb 14.2 (11.4-16.0) gm/dL Hct 42.5 (34.0-46.0) % MCV 86.9 (80.0-100.0) fL MCH 29.1 (25.0-35.0) pg MCHC 33.5 (31.0-37.0) g/dL RDW 13.3 (11.5-15.5) % Plt Count 356 (150-450) k/uL MPV 7.9 Neutrophils % 68 % Lymphocytes % 25 % Monocytes % 4 % Eosinophils % 2 % Basophils % 0 % Neutrophils # 7.4 (1.3-7.7) k/uL Lymphocytes # 2.7 (1.0-4.8) k/uL Monocytes # 0.4 (0-1.0) k/uL Eosinophils # 0.2 (0-0.7) k/uL Basophils # 0.0 (0-0.2) k/uL Sodium 139 (137-145) mmol/L Potassium 4.2 (3.5-5.1) mmol/L Chloride 108 H (98-107) mmol/L Carbon Dioxide 23 (22-30) mmol/L Anion Gap 8 mmol/L BUN 11 (7-17) mg/dL Creatinine 0.59 (0.52-1.04) mg/dL Est GFR (CKD-EPI)AfAm >90 (>60 ml/min/1.73 sqM) Est GFR (CKD-EPI)NonAf >90 (>60 ml/min/1.73 sqM) Glucose 115 H (74-99) mg/dL Calcium 9.6 (8.4-10.2) mg/dL Total Bilirubin 0.5 (0.2-1.3) mg/dL AST 22 (14-36) U/L ALT 15 (4-34) U/L Alkaline Phosphatase 60 (38-126) U/L Total Protein 6.9 (6.3-8.2) g/dL Albumin 4.2 (3.5-5.0) g/dL Amylase 42 (30-110) U/L Lipase 80 (23-300) U/L Urine Color Light Yellow Urine Appearance Cloudy H (Clear) Urine pH 6.0 (5.0-8.0) Ur Specific [place] 1.008 (1.001-1.035) Urine Protein Negative (Negative) Urine Glucose (UA) Negative (Negative) Urine Ketones Negative (Negative) Urine Blood Negative (Negative) Urine Nitrite Negative (Negative) Urine Bilirubin Negative (Negative) Urine Urobilinogen <2.0 (<2.0) mg/dL Ur Leukocyte Esterase Negative (Negative) Urine RBC <1 (0-5) /hpf Urine WBC 1 (0-5) /hpf Ur Squamous Epith Cells 20 H (0-4) /hpf Urine Bacteria Occasional H (None) /hpf Urine Mucus Rare H (None) /hpf Disposition Clinical Impression: Abdominal pain Disposition: HOME SELF-CARE Instructions (If sedation given, give patient instructions): Abdominal Pain (ED) Is patient prescribed a controlled substance at d/c from ED?: No Referrals: Lupe Lee MD [STAFF PHYSICIAN] - 1-2 days Time of Disposition: 10:17
[2020-09-16 09:03] LABS: Basophils % (A) 0 %; Eosinophils # (A) 0.2 k/uL (0-0.7); Eosinophils % (A) 2 %; HCT 42.5 % (34.0-46.0); HGB 14.2 gm/dL (11.4-16.0); Lymphocytes # (A) 2.7 k/uL (1.0-4.8); Lymphocytes % (A) 25 %; MCH 29.1 pg (25.0-35.0); MCHC 33.5 g/dL (31.0-37.0); MCV 86.9 fL (80.0-100.0); Mean Platelet Volume 7.9; Monocytes # (A) 0.4 k/uL (0-1.0); Monocytes % (A) 4 %; Neutrophils # (A) 7.4 k/uL (1.3-7.7); Neutrophils % (A) 68 %; Platelet Count 356 k/uL (150-450); RBC 4.89 m/uL (3.80-5.40); RDW 13.3 % (11.5-15.5); WBC 10.8 k/uL (3.8-10.6)
[2020-09-16 09:15] LABS: Appearance,Urine Cloudy (Clear); Bacteria,Urine Occasional /hpf; Bilirubin,Urine Negative (Negative); Blood,Urine Negative (Negative); Color,Urine Light Yellow; Glucose,Urine (UA) Negative (Negative); Ketones,Urine Negative (Negative); Leukocyte Esterase,Urine Negative (Negative); Mucus,Urine Rare /hpf; Nitrite,Urine Negative (Negative); Protein,Urine Negative (Negative); RBC,Urine <1 /hpf (0-5); Specific Gravity,Urine 1.008 (1.001-1.035); Squamous Epithelial Cell,Urine 20 /hpf (0-4); Urobilinogen,Urine <2.0 mg/dL (<2.0); WBC,Urine 1 /hpf (0-5)
[2020-09-16 09:15] LABS: ALT 15 U/L (4-34); AST 22 U/L (14-36); African American GFR (CKD) >90 (>60 ml/min/1.73 sqM); Albumin 4.2 g/dL (3.5-5.0); Alkaline Phosphatase 60 U/L (38-126); Amylase 42 U/L (30-110); Anion Gap 8 mmol/L; Blood Urea Nitrogen 11 mg/dL (7-17); Calcium 9.6 mg/dL (8.4-10.2); Carbon Dioxide 23 mmol/L (22-30); Chloride 108 mmol/L (98-107); Glucose 115 mg/dL (74-99); Lipase 80 U/L (23-300); Non-African American GFR(CKD) >90 (>60 ml/min/1.73 sqM); Potassium 4.2 mmol/L (3.5-5.1); Sodium 139 mmol/L (137-145); Total Bilirubin 0.5 mg/dL (0.2-1.3); Total Protein 6.9 g/dL (6.3-8.2)
[2020-09-16] MEDS ORDERED: KETOROLAC 15 MG/ML 1 ML VIAL IVP STA (09:22)
[2020-09-16 10:38] VITALS: BP 107/81; PULSE 74; RESP 18; TEMP 98.6
== END 2020-09-16 10:40 | disposition home or self-care (01) ==
LOC: EC 08:06
DX: R10.31 Right lower quadrant pain (principal); F41.9 Anxiety disorder, unspecified; F32.9 Major depressive disorder, single episode, unspecified; F17.200 Nicotine dependence, unspecified, uncomplicated
CPT/HCPCS: 36415; 80053; 82150; 83690; 85025; 81001; 99284; 96374; J1885

== ENCOUNTER 2022-12-05 12:44 | Emergency (ER) | payer BC ==
[2022-12-05] MEDS ORDERED: KETOROLAC 15 MG/ML 1 ML VIAL IVP STA (13:19)
[2022-12-05] MEDS ORDERED: SODIUM CHLORIDE 0.9% 1,000 ML IV STA (13:19)
[2022-12-05 13:38] LABS: Basophils % (A) 0 %; Eosinophils # (A) 0.2 k/uL (0-0.7); Eosinophils % (A) 2 %; HCT 44.6 % (34.0-46.0); HGB 14.7 gm/dL (11.4-16.0); Lymphocytes # (A) 2.4 k/uL (1.0-4.8); Lymphocytes % (A) 24 %; MCH 29.3 pg (25.0-35.0); MCHC 32.9 g/dL (31.0-37.0); Mean Platelet Volume 7.7; Monocytes # (A) 0.4 k/uL (0-1.0); Monocytes % (A) 4 %; Neutrophils # (A) 6.9 k/uL (1.3-7.7); Neutrophils % (A) 68 %; Platelet Count 334 k/uL (150-450); RBC 5.01 m/uL (3.80-5.40); RDW 12.8 % (11.5-15.5); WBC 10.2 k/uL (3.8-10.6)
[2022-12-05] MEDS ORDERED: ONDANSETRON 4 MG/2 ML VIAL IVP STA (13:52)
[2022-12-05 13:57] LABS: ALT 23 U/L (4-34); AST 18 U/L (14-36); African American GFR (CKD) >90 (>60 ml/min/1.73 sqM); Albumin 4.3 g/dL (3.5-5.0); Alkaline Phosphatase 68 U/L (38-126); Anion Gap 11 mmol/L; Blood Urea Nitrogen 7 mg/dL (7-17); Calcium 9.2 mg/dL (8.4-10.2); Carbon Dioxide 22 mmol/L (22-30); Chloride 107 mmol/L (98-107); Glucose 97 mg/dL (74-99); Lipase 47 U/L (23-300); Non-African American GFR(CKD) >90 (>60 ml/min/1.73 sqM); Sodium 140 mmol/L (137-145); Total Bilirubin 0.4 mg/dL (0.2-1.3); Total Protein 7.2 g/dL (6.3-8.2)
[2022-12-05 14:13] LABS: Appearance,Urine Clear (Clear); Bacteria,Urine Rare /hpf; Bilirubin,Urine Negative (Negative); Blood,Urine Negative (Negative); Color,Urine Light Yellow; Glucose,Urine (UA) Negative (Negative); Ketones,Urine Negative (Negative); Leukocyte Esterase,Urine Trace (Negative); Nitrite,Urine Negative (Negative); Protein,Urine Negative (Negative); Specific Gravity,Urine 1.011 (1.001-1.035); Squamous Epithelial Cell,Urine 3 /hpf (0-4); Urobilinogen,Urine <2.0 mg/dL (<2.0); WBC,Urine 15 /hpf (0-5)
--- NOTE | 2022-12-05 14:33 | US ---
EXAMINATION TYPE: US abdomen limited DATE OF EXAM: 12/05/2022 COMPARISON: 02/18/2020 CLINICAL INDICATION: Female, 37 years old with history of RUQ pain, hx of cholecystectomy; RUQ and ep igastric pain. nausea. Cholecystectomy 13 years ago. history of biliary stent TECHNIQUE: Multiple sonographic images of the right upper quadrant are obtained. FINDINGS: EXAM MEASUREMENTS: Liver Length: 18.6 cm Gallbladder Wall: Surgically absent CBD: 0.7 cm Right Kidney: 10.0 x 4.4 x 4.9 cm Pancreas: Tail obscured by overlying bowel gas Liver: enlarged Gallbladder: Surgically absent Evidence for sonographic Berman's sign: no CBD: visualized portion appears wnl Right Kidney: no evidence of hydronephrosis IMPRESSION: 1. No evidence for acute process. 2. Mild hepatomegaly. 3. The gallbladder is not visualized.
--- NOTE | 2022-12-05 14:45 | ED ---
Abdominal Pain HPI - General Chief Complaint: Abdominal Pain Stated Complaint: Abd Pain Time Seen by Provider: 12/05/22 13:19 Source: patient Mode of arrival: ambulatory Limitations: no limitations - History of Present Illness Initial Comments: Patient is a 37-year-old female who presents to the emergency department for abdominal pain. Patient reports pain in her right upper abdomen which started today. States she has had these episodes intermittently for the past couple years. She has history of cholecystectomy several years ago. Pain is sharp and radiates to her back. States it is worse with food intake. She reports nausea without vomiting. Denies fever and chills. No urinary symptoms. No diarrhea, constipation, blood in stool. No chest pain or shortness of breath. Patient went to urgent care and was sent to the emergency department for evaluation - Related Data Home Medications Medication Instructions Recorded Confirmed amLODIPine [Norvasc] 10 mg PO DAILY 09/16/20 09/16/20 lisinopriL 30 mg PO DAILY 09/16/20 09/16/20 Previous Rx's Medication Instructions Recorded Famotidine [Pepcid] 20 mg PO BID #28 tablet 12/05/22 Ibuprofen [Motrin] 800 mg PO Q6HR #30 tab 12/05/22 Allergies Allergy/AdvReac Type Severity Reaction Status Date / Time No Known Allergies Allergy Verified 12/05/22 13:08 Review of Systems ROS Statement: Those systems with pertinent positive or pertinent negative responses have been documented in the HPI. ROS Other: All systems not noted in ROS Statement are negative. Past Medical History Past Medical History: No Reported History Additional Past Medical History / Comment(s): 09/03/15 Pt presented to [facility] with epigastric pain which wraps around and radiates into her back. Pain causes anorexia and sweating and some SOB. Pain started couple months ago but became worse a couple weeks ago and even worse the past 2 days. Pain is sharp. Pt also states she has had blood in stool a couple times with last time being 2 days ago. Pt was transferred from [place] to [facility] as direct admit. Other HX: 01/2015 Pt admitted as transfer from [facility] with R lower quiadrant pain passible enteritis. Per old medical record, pt has anemia but she does not recall this. History of Any Multi-Drug Resistant Organisms: None Reported Past Surgical History: Ablation, Section, Cholecystectomy, EPS Additional Past Surgical History / Comment(s): bile duct stent. 2 c section. right ovary removed Past Anesthesia/Blood Transfusion Reactions: No Reported Reaction Additional Past Anesthesia/Blood Transfusion Reaction / Comment(s): no transfusion Past Psychological History: Anxiety, Depression Smoking Status: Former smoker Past Alcohol Use History: None Reported Past Drug Use History: None Reported - Past Family History Mother History Unknown: Yes Family Medical History: Diabetes Mellitus, Hypertension, Thyroid Disorder Additional Family Medical History / Comment(s): mother has diabetes, high blood pressure, hypothyroid. She is 51 yrs old. Father History Unknown: Yes Family Medical History: Diabetes Mellitus, Hyperlipidemia, Hypertension Additional Family Medical History / Comment(s): Father when pt was 6 months old. General Exam Limitations: no limitations General appearance: alert, in no apparent distress Head exam: Present: atraumatic, normocephalic, normal inspection Eye exam: Present: normal appearance, PERRL, EOMI. Absent: scleral icterus, conjunctival injection, periorbital swelling Respiratory exam: Present: normal lung sounds bilaterally. Absent: respiratory distress, wheezes, rales, rhonchi, stridor Cardiovascular Exam: Present: regular rate, normal rhythm, normal heart sounds. Absent: systolic murmur, diastolic murmur, rubs, gallop, clicks GI/Abdominal exam: Present: soft, tenderness (mild RUQ), normal bowel sounds. Absent: distended, guarding, rebound, rigid Neurological exam: Present: alert, oriented X3 Psychiatric exam: Present: normal affect, normal mood Skin exam: Present: warm, dry, intact, normal color. Absent: rash Course Vital Signs 12/05/22 12/05/22 13:03 14:52 Temperature 98.7 F 98.9 F Pulse Rate 97 67 Respiratory 18 16 Rate Blood Pressure 101/78 116/70 O2 Sat by Pulse 100 99 Oximetry Medical Decision Making - Medical Decision Making Was pt. sent in by a medical professional or institution (, KEVIN, CONCEPT ARTIST, urgent care, hospital, or skilled nursing...) When possible be specific @ -Urgent care today Did you speak to anyone other than the patient for history (EMS, parent, family, police, friend...)? What history was obtained from this source @ -No Did you review nursing and triage notes (agree or disagree)? Why? @ -I reviewed and agree with nursing and triage notes Were old charts reviewed (outside hosp., previous admission, EMS record, old EKG, old radiological studies, urgent care reports/EKG's, skilled nursing records)? Report findings @ -No old charts were reviewed Differential Diagnosis (chest pain, altered mental status, abdominal pain women, abdominal pain men, vaginal bleeding, weakness, fever, dyspnea, syncope, headache, dizziness, GI bleed, back pain, seizure, CVA, palpatations, mental health)? @ -Differential Abdominal Pain Women: Appendicitis, Cholecystitis, diverticulosis, ischemic bowel, pancreatitis, hepatitis, UTI, gastroenteritis, AAA, incarcerated hernia, bowel obstruction, constipation, inflammatory bowel, hepatitis, peptic ulcer disease, splenic infarction, perforated viscus, vulvitis, ovarian torsion, PID, kidney stone, placenta abruption, this is not meant to be an all-inclusive list EKG interpreted by me (3pts min.). @ -None X-rays interpreted by me (1pt min.). @ -None done CT interpreted by me (1pt min.). @ -None done U/S interpreted by me (1pt. min.). @ -Ultrasound report shows no no acute process. The gallbladder is absent. There is mild hepatomegaly What testing was considered but not performed or refused? (CT, X-rays, U/S, labs)? Why? @ -None What meds were considered but not given or refused? Why? @ -None Did you discuss the management of the patient with other professionals (professionals i.e. DrKatie, PA, CONCEPT ARTIST, lab, RT, psych nurse, social studies teacher, marketing and development coordinator, teacher, boat officer, returned case inspector)? Give summary @ -No Was smoking cessation discussed for >3mins.? @ -No Was critical care preformed (if so, how long)? @ -No Were there social determinants of health that impacted care today? How? (Homelessness, low income, unemployed, alcoholism, drug addiction, transportation, low edu. Level, literacy, decrease access to med. care, residential, rehab)? @ -No Was there de-escalation of care discussed even if they declined (Discuss DNR or withdrawal of care, Hospice)? DNR status @ -No What co-morbidities impacted this encounter? (DM, HTN, Smoking, COPD, CAD, Cancer, CVA, ARF, Chemo, Hep., AIDS, mental health diagnosis, sleep apnea, morbid obesity)? @ -None Was patient admitted / discharged? Hospital course, mention meds given and route, prescriptions, significant lab abnormalities, going to OR and other pertinent info. @Patient presenting for right upper quadrant pain she is well-appearing, afebrile. There is mild tenderness in the right upper quadrant without rigidity or guarding.Laboratory studies obtained there is no leukocytosis. Liver enzymes and lipase are within normal limits. Ultrasound report shows no acute process to gallbladder is absent and there is mild hepatomegaly Pain and nausea controlled. Results discussed with patient. At this time there are no diagnostic studies to explain patient's symptoms. Patient referred to GI specialist today. She is discharged in stable condition with symptomatic management. Undiagnosed new problem with uncertain prognosis? @ -No Drug Therapy requiring intensive monitoring for toxicity (Heparin, Nitro, Insulin, Cardizem)? @ -No Were any procedures done? @ -No Diagnosis/symptom? @ -RUQ pain Acute, or Chronic, or Acute on Chronic? @ -acute on chronic Uncomplicated (without systemic symptoms) or Complicated (systemic symptoms)? @ -uncomplicated Side effects of treatment? @ -No Exacerbation, Progression, or Severe Exacerbation? @ -No Poses a threat to life or bodily function? How? (Chest pain, USA, MD, pneumonia, PE, COPD, DKA, ARF, appy, cholecystitis, CVA, Diverticulitis, Homicidal, Suicidal, threat to staff... and all critical care pts) @ -No Dr. Arguello is my attending - Lab Data Result diagrams: 12/05/22 13:33 12/05/22 13:33 Lab Results 12/05/22 12/05/22 12/05/22 Range/Units 13:33 13:33 13:33 WBC 10.2 (3.8-10.6) k/uL RBC 5.01 (3.80-5.40) m/uL Hgb 14.7 (11.4-16.0) gm/dL Hct 44.6 (34.0-46.0) % MCV 89.0 (80.0-100.0) fL MCH 29.3 (25.0-35.0) pg MCHC 32.9 (31.0-37.0) g/dL RDW 12.8 (11.5-15.5) % Plt Count 334 (150-450) k/uL MPV 7.7 Neutrophils % 68 % Lymphocytes % 24 % Monocytes % 4 % Eosinophils % 2 % Basophils % 0 % Neutrophils # 6.9 (1.3-7.7) k/uL Lymphocytes # 2.4 (1.0-4.8) k/uL Monocytes # 0.4 (0-1.0) k/uL Eosinophils # 0.2 (0-0.7) k/uL Basophils # 0.0 (0-0.2) k/uL Sodium 140 (137-145) mmol/L Potassium 4.0 (3.5-5.1) mmol/L Chloride 107 (98-107) mmol/L Carbon Dioxide 22 (22-30) mmol/L Anion Gap 11 mmol/L BUN 7 (7-17) mg/dL Creatinine 0.74 (0.52-1.04) mg/dL Est GFR (CKD-EPI)AfAm >90 (>60 ml/min/1.73 sqM) Est GFR (CKD-EPI)NonAf >90 (>60 ml/min/1.73 sqM) Glucose 97 (74-99) mg/dL Plasma Lactic Acid Robert 0.9 (0.7-2.0) mmol/L Calcium 9.2 (8.4-10.2) mg/dL Total Bilirubin 0.4 (0.2-1.3) mg/dL AST 18 (14-36) U/L ALT 23 (4-34) U/L Alkaline Phosphatase 68 (38-126) U/L Total Protein 7.2 (6.3-8.2) g/dL Albumin 4.3 (3.5-5.0) g/dL Lipase 47 (23-300) U/L Urine Color Urine Appearance (Clear) Urine pH (5.0-8.0) Ur Specific [place] (1.001-1.035) Urine Protein (Negative) Urine Glucose (UA) (Negative) Urine Ketones (Negative) Urine Blood (Negative) Urine Nitrite (Negative) Urine Bilirubin (Negative) Urine Urobilinogen (<2.0) mg/dL Ur Leukocyte Esterase (Negative) Urine WBC (0-5) /hpf Ur Squamous Epith Cells (0-4) /hpf Urine Bacteria (None) /hpf 06/19/23 Range/Units 13:55 WBC (3.8-10.6) k/uL RBC (3.80-5.40) m/uL Hgb (11.4-16.0) gm/dL Hct (34.0-46.0) % MCV (80.0-100.0) fL MCH (25.0-35.0) pg MCHC (31.0-37.0) g/dL RDW (11.5-15.5) % Plt Count (150-450) k/uL MPV Neutrophils % % Lymphocytes % % Monocytes % % Eosinophils % % Basophils % % Neutrophils # (1.3-7.7) k/uL Lymphocytes # (1.0-4.8) k/uL Monocytes # (0-1.0) k/uL Eosinophils # (0-0.7) k/uL Basophils # (0-0.2) k/uL Sodium (137-145) mmol/L Potassium (3.5-5.1) mmol/L Chloride (98-107) mmol/L Carbon Dioxide (22-30) mmol/L Anion Gap mmol/L BUN (7-17) mg/dL Creatinine (0.52-1.04) mg/dL Est GFR (CKD-EPI)AfAm (>60 ml/min/1.73 sqM) Est GFR (CKD-EPI)NonAf (>60 ml/min/1.73 sqM) Glucose (74-99) mg/dL Plasma Lactic Acid Robert (0.7-2.0) mmol/L Calcium (8.4-10.2) mg/dL Total Bilirubin (0.2-1.3) mg/dL AST (14-36) U/L ALT (4-34) U/L Alkaline Phosphatase (38-126) U/L Total Protein (6.3-8.2) g/dL Albumin (3.5-5.0) g/dL Lipase (23-300) U/L Urine Color Light Yellow Urine Appearance Clear (Clear) Urine pH 8.0 (5.0-8.0) Ur Specific [place] 1.011 (1.001-1.035) Urine Protein Negative (Negative) Urine Glucose (UA) Negative (Negative) Urine Ketones Negative (Negative) Urine Blood Negative (Negative) Urine Nitrite Negative (Negative) Urine Bilirubin Negative (Negative) Urine Urobilinogen <2.0 (<2.0) mg/dL Ur Leukocyte Esterase Trace H (Negative) Urine WBC 15 H (0-5) /hpf Ur Squamous Epith Cells 3 (0-4) /hpf Urine Bacteria Rare H (None) /hpf Disposition Clinical Impression: RUQ pain Disposition: HOME SELF-CARE Condition: Good Instructions (If sedation given, give patient instructions): Abdominal Pain (ED) Additional Instructions: Take medication as directed. Please follow-up with your primary care provider in 1-2 days. Return to the emergency department if you experience new, concerning, or worsening symptoms. Prescriptions: Ibuprofen [Motrin] 800 mg PO Q6HR #30 tab Famotidine [Pepcid] 20 mg PO BID #28 tablet Is patient prescribed a controlled substance at d/c from ED?: No Referrals: Ronn Avelar MD [Primary Care Provider] - 1-2 days Lis Flores MD [STAFF PHYSICIAN] - 1-2 days
[2022-12-05 14:53] VITALS: BP 116/70; PULSE 67; RESP 16; TEMP 98.9
== END 2022-12-05 15:16 | disposition home or self-care (01) ==
LOC: EC 12:44
DX: R10.11 Right upper quadrant pain (principal); F41.9 Anxiety disorder, unspecified; F32.A Depression, unspecified; Z87.891 Personal history of nicotine dependence; Z79.899 Other long term (current) drug therapy
CPT/HCPCS: 36415; 80053; 83605; 83690; 85025; 81001; 76705; 99284; 96374; 96375; J2405; J1885

== ENCOUNTER 2023-08-21 11:08 | Emergency (ER) | payer BC ==
--- NOTE | 2023-08-21 11:31 | ED ---
General Adult HPI - General Source: patient, RN notes reviewed Mode of arrival: ambulatory Limitations: no limitations <Missy Hernandez - Last Filed: 08/21/23 11:26> - General Source: patient, RN notes reviewed Mode of arrival: ambulatory Limitations: no limitations <Mitali Lopez - Last Filed: 08/21/23 16:10> - General Chief complaint: Extremity Problem,Nontraumatic Stated complaint: Abd Labs Time Seen by Provider: 08/21/23 11:20 - History of Present Illness Initial comments: Quick [id number] female presents the ED with chief complaint of right arm pain and swelling. Patient states she went to urgent care with a prior told her to come to the ED for further evaluation of possible blood clot. Patient states that pain started yesterday evening and she has noticed mild swelling with no o verlying redness. Denies any shortness of breath, dizziness, loss of consciousness or any trauma to the arm. Denies use of oral contraceptives history of blood clots. (Missy Hernandez) This is a 37-year-old female who presents to the emergency department for right arm pain. States that yesterday she noticed pain in the middle of her right arm, as well as mild swelling around this area. The pain has since started to travel up the arm. Denies any injuries. Denies any notable redness to this area. She initially went to urgent care and was instructed to come to the em ergency department to rule out a blood clot. Pain is worse with movement and to the touch. She has not yet taken anything for management of her pain. Denies any history of blood clots or chest pain/shortness of breath. (Mitali Lopez) - Related Data Home Medications Medication Instructions Recorded Confirmed amLODIPine [Norvasc] 10 mg PO DAILY 09/16/20 09/16/20 lisinopriL 30 mg PO DAILY 09/16/20 09/16/20 Previous Rx's Medication Instructions Recorded Famotidine [Pepcid] 20 mg PO BID #28 tablet 12/05/22 Ibuprofen [Motrin] 800 mg PO Q6HR #30 tab 12/05/22 Ibuprofen [Motrin] 800 mg PO Q8H PRN #30 tab 08/21/23 methocarbamoL [Robaxin-750] 1,500 mg PO TID PRN #30 tab 08/21/23 Allergies Allergy/AdvReac Type Severity Reaction Status Date / Time No Known Allergies Allergy Verified 08/21/23 11:27 Review of Systems ROS Other: All systems not noted in ROS Statement are negative. <Missy Hernandez - Last Filed: 08/21/23 11:26> ROS Other: All systems not noted in ROS Statement are negative. <Mitali Lopez - Last Filed: 08/21/23 16:10> ROS Statement: Those systems with pertinent positive or pertinent negative responses have been documented in the HPI. Past Medical History Past Medical History: No Reported History Additional Past Medical History / Comment(s): 09/03/15 Pt presented to [facility] with epigastric pain which wraps around and radiates into her back. Pain causes anorexia and sweating and some SOB. Pain started couple months ago but became worse a couple weeks ago and even worse the past 2 days. Pain is sharp. Pt also states she has had blood in stool a couple times with last time being 2 days ago. Pt was transferred from [place] to [facility] as direct admit. Other HX: 01/2015 Pt admitted as transfer from [facility] with R lower quiadrant pain passible enteritis. Per old medical record, pt has anemia but she does not recall this. History of Any Multi-Drug Resistant Organisms: None Reported Past Surgical History: Ablation, Section, Cholecystectomy, EPS Additional Past Surgical History / Comment(s): bile duct stent. 2 c section. right ovary removed Past Anesthesia/Blood Transfusion Reactions: No Reported Reaction Additional Past Anesthesia/Blood Transfusion Reaction / Comment(s): no transfusion Past Psychological History: Anxiety, Depression Smoking Status: Former smoker Past Alcohol Use History: None Reported Past Drug Use History: None Reported - Past Family History Mother History Unknown: Yes Family Medical History: Diabetes Mellitus, Hypertension, Thyroid Disorder Additional Family Medical History / Comment(s): mother has diabetes, high blood pressure, hypothyroid. She is 51 yrs old. Father History Unknown: Yes Family Medical History: Diabetes Mellitus, Hyperlipidemia, Hypertension Additional Family Medical History / Comment(s): Father when pt was 6 months old. <Missy Hernandez - Last Filed: 08/21/23 11:26> General Exam <Missy Hernandez - Last Filed: 08/21/23 11:26> Limitations: no limitations General appearance: alert, in no apparent distress Head exam: Present: atraumatic, normocephalic, normal inspection Respiratory exam: Present: normal lung sounds bilaterally. Absent: respiratory distress, wheezes, rales, rhonchi, stridor Cardiovascular Exam: Present: regular rate, normal rhythm, normal heart sounds. Absent: systolic murmur, diastolic murmur, rubs, gallop, clicks Extremities exam: Present: other (Tenderness to palpation over the majority of the right biceps. Full range of motion, however this does induce pain. Possible mild swelling. No erythema. 2+ radial pulses.) Neurological exam: Present: alert, oriented X3, CN II-XII intact Psychiatric exam: Present: normal affect, normal mood Skin exam: Present: warm, dry, intact, normal color. Absent: rash <Mitali Lopez - Last Filed: 08/21/23 16:10> - General Exam Comments Initial Comments: Visual Physical Exam Vital signs reviewed General: Well-appearing, nontoxic, no acute distress. Head: Normocephalic, atraumatic Eyes: PERRLA, EOMI ENT: Airway patent Chest: Nonlabored breathing Skin: No visual rash, normal skin tone Neuro: Alert and oriented 3 Musculoskeletal: No gross abnormalities (Missy Hernandez) Course Vital Signs 08/21/23 08/21/23 11:25 14:19 Temperature 98.2 F 98.4 F Pulse Rate 91 79 Respiratory 20 18 Rate Blood Pressure 147/103 141/94 O2 Sat by Pulse 100 98 Oximetry Medical Decision Making <Missy Hernandez - Last Filed: 08/21/23 11:26> - Radiology Data Radiology results: report reviewed, image reviewed <Mitali Lopez - Last Filed: 08/21/23 16:10> - Medical Decision Making I completed the quick note portion of this chart signed Missy Hernandez PA-C (Missy Hernandez) This is a 37-year-old female who presents to the emergency department for right arm pain. Was pt. sent in by a medical professional or institution? @ -Urgent care Did you speak to anyone other than the patient for history? @ -No Did you review nursing and triage notes? @ -Yes, and I agree, it is accurate with regards to the patient's symptoms. Were old charts reviewed? @ -No Differential Diagnosis? @ -Differential Musculoskeletal: Muscular strain, contusion, ligament sprain, fracture, arthritis, septic arthritis, bursitis, cellulitis, muscle spasm, nerve compression, DVT, arterial occlusion, herpes zoster, electrolyte abnormality, tumor.... This is not meant to be in all inclusive list EKG interpreted by me (3pts min.)? @ -Not obtained X-rays interpreted by me (1pt min.)? @ -Not obtained CT interpreted by me (1pt min.)? @ -Not obtained U/S interpreted by me (1pt. min.)? @ -Duplex ultrasound of the right upper extremity obtained. My interpretation identifies no evidence of a DVT. What testing was considered but not performed? (CT, X-rays, U/S, labs)? Why? @ -None What meds were considered but not given? Why? @ -None Did you discuss the management of the patient with other professionals? @ -No Did you reconcile home meds? @ -No Was smoking cessation discussed for >3mins.? @ -I discussed smoking cessation for greater than 3 minutes. The risk of smoking were discussed with the patient including but not limited to risks of cancer, stroke, coronary artery disease and COPD. Also discussed with patient were multiple methods of quitting smoking. Lastly we discussed the financial cost of smoking. Was critical care preformed (if so, how long)? @ -No Were there social determinants of health that impacted care today? How? (Homelessness, low income, unemployed, alcoholism, drug addiction, transportation, low edu. Level, literacy, decrease access to med. care, fpc, rehab)? @ -No Was there de-escalation of care discussed even if they declined? (Discuss DNR or withdrawal of care, Hospice)? @ -No What co-morbidities impacted this encounter? (DM, HTN, Smoking, COPD, CAD, Cancer, CVA, Hep., AIDS, mental health diagnosis, sleep apnea, morbid obesity)? @ -Smoking Was patient admitted / discharged? @ -Discharged. Duplex ultrasound of the right upper extremity obtained revealing no evidence of a DVT or other acute process. Symptoms well-controlled with Toradol and Tylenol in the emergency department. Advised that this is likely a muscular issue. Prescription for ibuprofen and Robaxin provided with dosing instructions reviewed. Patient discharged home in stable condition. Undiagnosed new problem with uncertain prognosis? @ -None Drug Therapy requiring intensive monitoring for toxicity (Heparin, Nitro, Insulin, Cardizem)? @ -None Were any procedures done? @ -None Diagnosis/symptom? @ -Right arm pain Acute, or Chronic, or Acute on Chronic? @ -Acute Uncomplicated (without systemic symptoms) or Complicated (systemic symptoms)? @ -Uncomplicated Side effects of treatment? @ -None Exacerbation, Progression, or Severe Exacerbation] @ -Not applicable Poses a threat to life or bodily function? @ -No Return precautions reviewed in depth, the patient is instructed to return to the emergency department with any new, worsening, or concerning symptoms. Patient verbalized understanding. This case was discussed in detail with the attending ED physician, Dr. Arguello. Presentation, findings, and treatment plan discussed in detail as well. (Mitali Lopez) Disposition <Misys Hernandez - Last Filed: 08/21/23 11:26> Is patient prescribed a controlled substance at d/c from ED?: No Time of Disposition: 13:58 <Mitali Lopez - Last Filed: 08/21/23 16:10> Clinical Impression: Nicotine dependence, Right arm pain Disposition: HOME SELF-CARE Instructions (If sedation given, give patient instructions): Arm Pain (ED) Additional Instructions: Return to the emergency department with any new, worsening, or concerning symptoms. Alternate with ibuprofen and Tylenol as needed for pain relief. You can take the Robaxin as 1 to 2 tablets up to 3-4 times daily. Be aware that this may make you drowsy. Follow up with your primary care provider in 1-2 days. Prescriptions: Ibuprofen [Motrin] 800 mg PO Q8H PRN #30 tab PRN Reason: Pain methocarbamoL [Robaxin-750] 1,500 mg PO TID PRN #30 tab PRN Reason: Pain Referrals: Emely Raman NPC [REFERRING] - 1-2 days
[2023-08-21] MEDS: ACETAMINOPHEN TAB 500 MG TAB PO STA (12:09)
[2023-08-21] MEDS: KETOROLAC 15 MG/ML 1 ML VIAL IM STA (12:12)
--- NOTE | 2023-08-21 13:49 | US ---
EXAMINATION TYPE: US venous doppler duplex UE RT DATE OF EXAM: 08/21/2023 COMPARISON: NONE CLINICAL INDICATION: Female, 37 years old with history of Arm swelling; Right arm pain TECHNIQUE: Grayscale, color doppler, spectral doppler imaging performed of the deep veins of the upp er extremities. SIDE PERFORMED: Right FINDINGS: There is normal flow, compressibility and vascular waveforms. Right Arm: Appears negative for DVT IMPRESSION: No evidence for DVT within the right upper extremity.
[2023-08-21] MEDS: DEXAMETHASONE SOD PHOSPHATE 10 MG/ML 1 ML VIAL IM STA (14:11)
[2023-08-21] MEDS: traMADol 50 MG STARTER PACK 3 TAB BTL PO STA (14:12)
[2023-08-21 14:52] VITALS: BP 141/94; PULSE 79; RESP 18; TEMP 98.4
== END 2023-08-21 14:20 | disposition home or self-care (01) ==
LOC: EC 11:08
DX: M79.641 Pain in right hand (principal); F17.200 Nicotine dependence, unspecified, uncomplicated; Z86.59 Personal history of other mental and behavioral disorders
CPT/HCPCS: 99284 ×2; 96372 ×3; 93971; 99406; J1100; J1885